=== PATIENT | male | born 1935 | race Caucasian/White ===

== ENCOUNTER 2018-10-21 12:22 | Observation (INO) | payer MEDICARE, OTHER ==
--- NOTE | 2018-10-12 09:46 | HP ---
Amended report to enter cosigning physician. HISTORY AND PHYSICAL: DATE OF ADMISSION/SURGERY: 10/21/18 DATE OF OFFICE VISIT: 10/11/18 SURGEON: Tri Ballard MD* (dictated by NELY Montana). PROCEDURE: Right total knee arthroplasty. CHIEF COMPLAINT: Right knee pain. HISTORY OF PRESENT ILLNESS: Mr. Carey is an 82-year-old gentleman with complaints of right knee pain. He has failed conservative treatment and elected to proceed with a right total knee arthroplasty. PAST MEDICAL HISTORY: 1. Mobitz type 1 heart block. 2. BPH. 3. History of Lyme disease. PAST SURGICAL HISTORY: 1. Hydrocele reduction. 2. Hernia repair x2. 3. ORIF of the left ankle. 4. Right knee ACL reconstruction. 5. Nasal surgery. 6. Right rotator cuff repair. 7. Removal of hardware of the right knee. CURRENT MEDICATIONS: 1. Vitamin D. 2. Magnesium. 3. Finasteride. ALLERGIES: No known drug allergies. FAMILY HISTORY: Diabetes, dementia, coronary artery disease, and stroke. SOCIAL HISTORY: He is an 82-year-old gentleman, lives with his . He does not smoke or use drugs. REVIEW OF SYSTEMS: A complete 14-point review of systems was reviewed with the patient. It was all negative and noncontributory. He denies history of DVT, PE , hepatitis, HIV, or anesthesia problems. PHYSICAL EXAMINATION GENERAL: He is well developed, well nourished, in no acute distress. VITAL SIGNS: He stands 66 inches tall, weighs 138 pounds. Blood pressure is 116/66, his heart rate is 57. HEENT: Normocephalic, atraumatic. NECK: Supple. No palpable lymph nodes. PULMONARY: Lungs are clear to auscultation bilaterally. CARDIO: Regular rate and rhythm. Strong S1, S2. ABDOMEN: Soft, nontender, nondistended. NEUROLOGICAL: He is alert and oriented x3. MUSCULOSKELETAL: Right lower extremity, the skin is intact. There are no open wounds or abrasions. There is a moderate effusion of the right knee joint. There is a varus deformity. Range of motion is 15 to 120 degrees of flexion.. There is some tenderness over the medial joint line. He is able to dorsiflex and plantarflex. He has 2+ dorsalis pedis pulse. Intact sensation. ASSESSMENT AND PLAN: Mr. Carey is an 82-year-old gentleman with end-stage osteoarthritis of the right knee. He has failed conservative treatment and elected to proceed with a right total knee arthroplasty. The surgery is scheduled for 10/21/[address] Ballard discussed the risks and benefits of the surgery at today's visit and all of his questions were answered. He will follow up with Dr. Ballard in 2 weeks after the surgery. NELY MONTANA [id number]/CPS #: [id number] DARLINE
[~2018-10-21 12:22] MED LIST: Buffered Lidocaine 1% SYRIN* 1 ML/SYRINGE INTRADERM ONE; Dexamethasone IV* 4 MG/ML 1 ML (4 MG) IV SLOW PU ONE; Famotidine IV* 10 MG/ML 2 ML (20 mg) IV ONE; Gabapentin CAP(*) 300 MG PO ONE; Lactated Ringers 1000 ML Bag* 1,000 ML IV SCH; Tranexamic Acid 1,000 MG in NS 0.9% 50 ML* (outpatient use) IV SCH; celeCOXIB CAP* 200 MG PO ONE
--- OUTSIDE RECORDS SUMMARY | 2018-10-21 12:25 | XMS REPORT | Continuity of Care Document ---
:1935 External Reference #:[id number] Author Name Samina Moe Care Team Providers Name Role Phone Maria Elena Mcelroy MD Primary Care Physician Unavailable Payers Date Identification Numbers Payment Provider Subscriber Effective: 2001 Policy Number: [id number] Medicare Scar Ayoub PayID: [id number] [address] [place] [address] Policy Number: [id number] [employer] Scar Ayoub Group Number: [id number] [address] PayID: [id number] [place] [address] Problems Active Problems Provider Date Localized, primary osteoarthritis Tri Ballard M.D. Onset: 07/28/2016 Convalescence after surgery Tom Powers M.D. Onset: 03/21/2016 Spinal stenosis of lumbar region Tom Powers M.D. Onset: 02/18/2016 Displacement of lumbar intervertebral disc Tom Powers M.D. Onset: 2015 without myelopathy Family History Date Family Member(s) Observation Comments General Diabetes : (age 90 Father due to boxer in college Years) Alzheimer's Disease : (age 99 Mother due to Natural congestive heart Years) Causes failure Number of Children 1 son alive and well Number of Siblings 1 brother, 2 sisters, alive and well. 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 04/14/2016 hours as needed for pain. Percocet 1-2 tabs by mouth 60tabs Luis Ward M.D. 08/10/2014 - 5-325mg q4-6 hours as 04/14/2016 Tablets needed pain Avodart 1 po qd 90caps Zactagloria S. 01/25/2009 - 0.5mg Capsules Daryl Quiroga 10/10/2018 Centrum Silver 1 po qd Unknown - 09/24/2011 Che[place]abs Vitamin B Complex 1 po qd Unknown - 06/19/2016 Capsules Tamsulosin HCL Unknown - 06/19/2016 Medications Administered in Office Medication SIG Qnty Indications Ordering Provider Date Liz Ballard M.D. 08/11/2016 Nirmal KabaFor Intra-Articular Inj Per Dose Injection Liz Ballard M.D. 08/04/2016 SesarOrthokwadwoFor Intra-Articular Inj Per Dose Injection Hyaluron Or Tri Ballard M.D. 07/28/2016 Bryce KabavisjoseFor Intra-Articular Inj Per Dose Injection Depomedrol 80MG Tri Ballard M.D. 08/04/2013 Injection Vital Signs Date Vital Result Comment 10/11/2018 10:17am Height 66.5 inches 5'6.50" Weight 138.00 lb BP Systolic 116 mmHg BP Diastolic 66 mmHg Respiratory Rate 15 /min Pain Level 2 BMI (Body Mass Index) 21.9 kg/m2 08/13/2018 9:46am Height 66.5 inches 5'6.50" Weight 138.00 lb Heart Rate 57 /min BP Systolic 130 mmHg BP Diastolic 74 mmHg Respiratory Rate 16 /min Body Temperature 97.5 F Pain Level 4 BMI (Body Mass Index) 21.9 kg/m2 08/11/2016 8:08am Height 66.5 inches 5'6.50" Weight 138.00 lb Heart Rate 56 /min BP Systolic Sitting 117 mmHg BP Diastolic Sitting 68 mmHg Respiratory Rate 14 /min Pain Level 0 BMI (Body Mass Index) 21.9 kg/m2 08/04/2016 8:07am Height 66.5 inches 5'6.50" Weight 137.00 lb Heart Rate 55 /min BP Systolic 120 mmHg BP Diastolic 72 mmHg Pain Level 1 BMI (Body Mass Index) 21.8 kg/m2 07/28/2016 8:07am Height 66.5 inches 5'6.50" Weight 136.00 lb Heart Rate 62 /min BP Systolic 131 mmHg BP Diastolic 73 mmHg Body Temperature 97.6 F Pain Level 1 BMI (Body Mass Index) 21.6 kg/m2 06/20/2016 8:13am Height 66.5 inches 5'6.50" Weight 145.00 lb Heart Rate 52 /min BP Systolic 116 mmHg BP Diastolic 63 mmHg Body Temperature 97.5 F Pain Level 0 BMI (Body Mass Index) 23.1 kg/m2 05/19/2016 9:22am Height 66 inches 5'6" Weight 131.00 lb Heart Rate 60 /min BP Systolic Sitting 158 mmHg BP Diastolic Sitting 80 mmHg Pain Level 60 BMI (Body Mass Index) 21.1 kg/m2 04/14/2016 10:42am Height 66 inches 5'6" Weight 131.00 lb BP Systolic Sitting 126 mmHg BP Diastolic Sitting 80 mmHg Pain Level 3 BMI (Body Mass Index) 21.1 kg/m2 03/21/2016 10:02am Height 66 inches 5'6" Weight 131.00 lb Heart Rate 54 /min BP Systolic Sitting 140 mmHg BP Diastolic Sitting 80 mmHg Pain Level 2 BMI (Body Mass Index) 21.1 kg/m2 02/18/2016 9:07am Height 66 inches 5'6" Weight 131.00 lb BP Systolic Sitting 130 mmHg BP Diastolic Sitting 80 mmHg Pain Level 1 BMI (Body Mass Index) 21.1 kg/m2 01/21/2016 8:32am Height 66 inches 5'6" Weight 131.00 lb Heart Rate 58 /min BP Systolic Sitting 110 mmHg BP Diastolic Sitting 72 mmHg Pain Level 1 BMI (Body Mass Index) 21.1 kg/m2 09/28/2014 8:05am Height 66 inches 5'6" Weight 140.00 lb Heart Rate 49 /min BP Systolic 119 mmHg BP Diastolic 71 mmHg Pain Level 1 BMI (Body Mass Index) 22.6 kg/m2 09/04/2014 9:42am Height 66 inches 5'6" Weight 140.00 lb Heart Rate 50 /min BP Systolic 120 mmHg BP Diastolic 77 mmHg Body Temperature 96.4 F Pain Level 1 BMI (Body Mass Index) 22.6 kg/m2 08/10/2014 8:22am Height 66 inches 5'6" Weight 135.00 lb Pain Level 2 BMI (Body Mass Index) 21.8 kg/m2 09/05/2013 1:09pm Height 66 inches 5'6" Weight 135.00 lb Heart Rate 60 /min BMI (Body Mass Index) 21.8 kg/m2 08/04/2013 11:14am Height 66 inches 5'6" Weight 135.00 lb Heart Rate 56 /min BMI (Body Mass Index) 21.8 kg/m2 09/24/2011 1:40pm Height 66 inches 5'6" Weight 136.00 lb Heart Rate 66 /min BP Systolic Sitting 126 mmHg BP Diastolic Sitting 68 mmHg BMI (Body Mass Index) 21.9 kg/m2 07/31/2009 11:06am Height 66 inches 5'6" Weight 139.00 lb Heart Rate 65 /min BP Systolic 110 mmHg BP Diastolic 72 mmHg BMI (Body Mass Index) 22.4 kg/m2 01/25/2009 2:03pm Height 66 inches 5'6" Weight 137.00 lb Heart Rate 68 /min BP Systolic Sitting 98 mmHg L BP Diastolic Sitting 70 mmHg L BMI (Body Mass Index) 22.1 kg/m2 12/12/2008 10:34am Height 66 inches 5'6" Weight 135.00 lb Heart Rate 62 /min BP Systolic Sitting 124 mmHg BP Diastolic Sitting 60 mmHg BMI (Body Mass Index) 21.8 kg/m2 Results Test Date Facility Test Result H/L Range Note CBC Auto Diff 10/11/2018 [facility] White Blood 7.6 10^3/uL N 3.5-10.[address] [place] [address] [phone] Red Blood Count 4.26 10^6/uL N 4.18-5.48 Hemoglobin 14.0 g/dL N 14.0-18.0 Hematocrit 42 % N 42-52 Mean Corpuscular Volume 98 fL High 80-94 Mean Corpuscular Hemoglobin 33 pg High 27-31 Mean Corpuscular HGB Conc 34 g/dL N 31-36 Red Cell Distribution Width 14 % N 10.5-15 Platelet Count 329 10^3/uL N 150-450 Mean Platelet Volume 8.2 fL N 7.4-10.4 Abs Neutrophils 4.5 10^3/uL N 1.5-7.7 Abs Lymphocytes 2.3 10^3/uL N 1.0-4.8 Abs Monocytes 0.8 10^3/uL N 0-0.8 Abs Eosinophils 0.1 10^3/uL N 0-0.6 Abs Basophils 0.0 10^3/uL N 0-0.2 Abs Nucleated RBC 0.0 10^3/uL Granulocyte % 59.2 % Lymphocyte % 29.8 % Monocyte % 9.9 % Eosinophil % 0.7 % Basophil % 0.4 % Nucleated Red Blood Cells % 0.1 Inr/Protime 10/11/2018 [facility] Inr 0.98 N 0.82-1.09 1 [address] [place] [address] [phone] Laboratory test 10/11/2018 [facility] Partial 31.6 seconds N 26.0-38.0 finding [address] [facility] [place] [address] PTT [phone] Urinalysis 10/11/2018 [facility] Urine Color Yellow Profile [address] [place] [address] [phone] Urine Appearance Cloudy Urine Specific [place] 1.023 N 1.010-1.030 Urine pH 6.0 N 5-9 Urine Urobilinogen Negative Negative Urine Ketones Negative Negative Urine Protein Negative Negative Urine Leukocytes Negative Negative Urine Blood Negative Negative Urine Nitrite Negative Negative Urine Bilirubin Negative Negative Urine Glucose Negative Negative Comp Metabolic Panel 10/11/2018 [facility] Sodium 140 mmol/L N 135-145 [address] [place] [address] [phone] Potassium 4.5 mmol/L N 3.5-5.0 Chloride 106 mmol/L N 101-111 Co2 Carbon Dioxide 28 mmol/L N 22-32 Anion Gap 6 mmol/L N 2-11 Glucose 102 mg/dL High 70-100 Blood Urea Nitrogen 26 mg/dL High 6-24 Creatinine 0.93 mg/dL N 0.67-1.17 BUN/Creatinine Ratio 28.0 High 8-20 Calcium 9.1 mg/dL N 8.6-10.3 Total Protein 6.6 g/dL N 6.4-8.9 Albumin 4.1 g/dL N 3.2-5.2 Globulin 2.5 g/dL N 2-4 Albumin/Globulin Ratio 1.6 N 1-3 Total Bilirubin 0.70 mg/dL N 0.2-1.0 Alkaline Phosphatase 56 U/L N 34-104 Alt 17 U/L N 7-52 Ast 21 U/L N 13-39 Egfr Non- 78.0 >60 Egfr 94.4 >60 2 Type & Screen 10/11/2018 [facility] Patient Blood Type O Positive [address] [place] [address] [phone] Antibody Screen NEGATIVE CBC No Diff 03/03/2016 [facility] White Blood 7.6 10^3/uL N 3.5-10.[address] [place] [address] [phone] Red Blood Count 4.14 10^6/uL N 4.0-5.4 Hemoglobin 13.5 g/dL Low 14.0-18.0 Hematocrit 40 % Low 42-52 Mean Corpuscular Volume 97 fL High 80-94 Mean Corpuscular Hemoglobin 33 pg High 27-31 Mean Corpuscular HGB Conc 34 g/dL N 31-36 Red Cell Distribution Width 14 % N 10.5-15 Platelet Count 365 10^3/uL N 150-450 Mean Platelet Volume 8 um3 N 7.4-10.4 Basic Metabolic Panel 03/03/2016 [facility] Sodium 139 mmol/L N 133-[address] [place] [address] [phone] Potassium 4.4 mmol/L N 3.5-5.0 Chloride 106 mmol/L N 101-111 Co2 Carbon Dioxide 28 mmol/L N 22-32 Anion Gap 5 mmol/L N 2-11 Glucose 86 mg/dL N 70-100 Blood Urea Nitrogen 28 mg/dL High 6-24 Creatinine 0.84 mg/dL N 0.67-1.17 BUN/Creatinine Ratio 33.3 High 8-20 Calcium 8.9 mg/dL N 8.6-10.3 Egfr Non- 88.1 N >60 Egfr 113.4 N >60 3 Platelet Count 01/31/2016 [facility] Platelet Count 399 10^3/uL N 150-[address] [place] [address] [phone] Mean Platelet Volume 8 um3 N 7.4-10.4 Creatinine 01/31/2016 [facility] Creatinine 0.89 mg/dL N 0.67- 1.[address] [place] [address] [phone] Egfr Non- 82.5 N >60 Egfr 106.0 N >60 5 Inr/Protime 01/31/2016 [facility] Inr 1.03 N 0.89-1.[address] [place] [address] [phone] Laboratory test 01/31/2016 [facility] Partial Thrombo 30.2 seconds N 26.0-36.[address] [place] [address] [phone] Surgical 08/22/2014 [facility] S RUN DATE: [address] 08/23/ <[place] [address] NOTE> [phone] Kasia 09/02/2011 [facility] Antinuclear AB NEGATIVE Negative (Antinuclear [address] Antibodies) [place] [address] [phone] Laboratory test 09/02/2011 [facility] Erythrocyte Sed 16 MM/HR 0-[address] [place] [address] [phone] Cyclic Citrullinated Pep Igg <15.6 U () 8 Rheumatoid Factor < 15 IU/mL <15 9 CBC Auto Diff 09/02/2011 [facility] White Blood 6.9 CUMM 4.8- 10.[address] [place] [address] [phone] Red Cell Count 4.08 CUMM Low 4.6-6.2 Hemoglobin 13.6 g/dL Low 14.0-18.0 Hematocrit 40 % Low 42-52 Mean Corpuscular Volume 97 um3 High 80-94 Mean Corpuscular Hemoglob 33 pg High 27-31 Mean Corpuscular HGB Cone 34 g/dL 32-36 Redcell Distribution WDTH 14 % 10.5-15 Platelet Count 278 CUMM 150-450 Mean Platelet Volume 9.6 um3 7.4-10.4 Gran % 55.7 % 38-83 Lymph % 30.1 % 25-47 Mononuclear % 11.2 % High 1-9 Eosinophil % 2.3 % 0-6 Basophil % 0.7 % 0-2 Abs Lymphs 2.1 1.0-4.8 Abs Mononuclear 0.8 0-0.8 Absolute Neutrophil Count 3.8 1.5-7.7 Abs Eosinophils 0.2 0-0.6 Abs Basophils 0 0-0.2 Laboratory test 09/02/2011 [facility] Uric Acid 6.0 mg/dL 2.6 -7.2 finding [address] [place] [address] [phone] C Reactive Protein 0.8 mg/dL High Less Than 0.5 1 Standard intensity warfarin therapeutic range: 2.0-3.0 High intensity warfarin therapeutic range: 2.5-3.5 2 Because ethnic data is not always readily available, this report includes an eGFR for both -Americans and non- Americans. The National Kidney Disease Education Program (NKDEP) does not endorse the use of the MDRD equation for patients that are not between the ages of 18 and 70, are , have extremes of body size, muscle mass, or nutritional status, or are non- or non-. According to the National Kidney Foundation, irrespective of diagnosis, the stage of the disease is based on the level of kidney function: Stage Description GFR(mL/min/1.73 m(2)) 1 Kidney damage with normal or decreased GFR 90 2 Kidney damage with mild decrease in GFR 60-89 3 Moderate decrease in GFR 30-59 4 Severe decrease in GFR 15-29 5 Kidney failure <15 (or dialysis) 3 Because ethnic data is not always readily available, this report includes an eGFR for both -Americans and non- Americans. The National Kidney Disease Education Program (NKDEP) does not endorse the use of the MDRD equation for patients that are not between the ages of 18 and 70, are , have extremes of body size, muscle mass, or nutritional status, or are non- or non-. According to the National Kidney Foundation, irrespective of diagnosis, the stage of the disease is based on the level of kidney function: Stage Description GFR(mL/min/1.73 m(2)) 1 Kidney damage with normal or decreased GFR 90 2 Kidney damage with mild decrease in GFR 60-89 3 Moderate decrease in GFR 30-59 4 Severe decrease in GFR 15-29 5 Kidney failure <15 (or dialysis) 4 CALL RESULTS TO EXT: [id number] 5 Because ethnic data is not always readily available, this report includes an eGFR for both -Americans and non- Americans. The National Kidney Disease Education Program (NKDEP) does not endorse the use of the MDRD equation for patients that are not between the ages of 18 and 70, are , have extremes of body size, muscle mass, or nutritional status, or are non- or non-. According to the National Kidney Foundation, irrespective of diagnosis, the stage of the disease is based on the level of kidney function: Stage Description GFR(mL/min/1.73 m(2)) 1 Kidney damage with normal or decreased GFR 90 2 Kidney damage with mild decrease in GFR 60-89 3 Moderate decrease in GFR 30-59 4 Severe decrease in GFR 15-29 5 Kidney failure <15 (or dialysis) 6 CALL RESULTS TO EXT: [id number] 7 RUN DATE: 08/23/14 [facility] LAB LIVE PAGE 1 RUN TIME: [address] [place] [address] Specimen Inquiry Name: SCAR AYOUB : [address]: Tri Ballard MD Acct: [id number] Unit: [id number] AGE: 78 Location: OR Re08/22/14 SEX: M Status: REG SD SPEC: [id number] TARI: 08/22/14-[address]: Tri Ballard MD REQ: [id number] RECD: 08/22/14 STATUS: SOUT _ ORDERED: LEVEL I FINAL DIAGNOSIS Right knee, hardware removal: Foreign body (orthopedic hardware) (Gross diagnosis). PRE-OPERATIVE DIAGNOSIS Right knee painful hardware. GROSS DESCRIPTION The specimen is received fresh labeled, Hardware Right Knee, and consists of a 5.5 x 0.2 cm silver metallic partially threaded Abel-headed screw and a 1.2 x 0.2 cm silver metallic circular washer. Per established hospital medical staff protocol, no tissue is submitted. Gross only. Signed (signature on file) Kesha Beach MD 1020 END OF REPORT * ML=Testing performed at Main Lab DEPARTMENT OF PATHOLOGY, [address] [place] [address] Scar Arshad M.D. Director [facility] # [id number] -- REFERENCE VALUE -- <20.0 (Negative) Test Performed by: [facility] Dpt of Lab Med and Pathology [address] [place] [address] Sports Umpire: Ab Hunter III, M.D. 9 Test Performed by: [facility] Dpt of Lab Med and Pathology [address] [place] [address] Sports Umpire: Ab Hunter III, M.D. Procedures Date Code Description Status 08/11/201625281 Inject/Drain Joint/Bursa Major W/O US Completed 08/04/2016 Inject/Drain Joint/Bursa Major W/O US Completed 07/28/201686309 Inject/Drain Joint/Bursa Major W/O US Completed 03/11/2016 49747 Medel/Facet/Foraminotomy;Vertebral Segment; Lumbar Completed 03/11/2016 01413 Medel/Facet/Foraminotomy;Vertebral Segment; Lumbar Completed 03/11/2016 20370 Laminotomy W/Decomp NRV RT,One Interspace,Lumbar Completed 03/11/2016 86898 Laminotomy W/Decomp NRV RT,One Interspace,Lumbar Completed 03/03/2016 28827 EKG, Interpretation Only Completed 08/22/201425087 Removal Implant Deep Wire,Screw Nail,Randal Or Plate Completed 08/22/201416150 Removal Implant Deep Wire,Screw Nail,Randal Or Plate Completed 08/04/2013 76372 Inject/Drain Joint/Bursa Major W/O US Completed 08/04/2013 03209 Xray Knee 3 Views Completed 07/31/2009 74854 EKG Tracing & Interpretation Completed 07/25/2009 57085 Holter Monitor Completed 01/09/2009 88989 Mobile Cardiovascular Telemetry Over 24 HR Up To 30 Days Completed 12/22/2008 03397 ECHO Stress Test Incl Perf Contiuous ekg Monitoring W/Phys Completed Superv 12/22/2008 87256 ECHO Stress Test Incl Perf Contiuous ekg Monitoring W/Phys Completed Superv 12/19/2008 82243 ECHO Transthoracic, Real-Time 2D With Doppler And Color Completed Flow 12/14/2008 15467 Mobile Cardiovascular Telemetry Over 24 HR Up To 30 Days Completed 12/12/2008 82510 EKG Tracing & Interpretation Completed 02/05/2004 35742 ECHO/Stress Completed 02/05/2004 46723 Stress Test Completed Encounters Type Date Location Provider Dx Diagnosis Office Visit 08/13/2018 Orthopedic Tri Ballard, M25.561 Pain in right 9:30a Services Of [facility] Brito knee M25.461 Effusion, right knee M17.31 Unilateral post-traumatic osteoarthritis, right knee Office Visit 06/20/2016 8:15a Orthopedic Services Tri Ballard, M25.561 Pain in right Of C.MEric Brito knee M17.11 Unilateral primary osteoarthritis, right knee Office Visit 02/18/2016 Neurosurgery Tom M51.26 Other 9:15a Services Of Nikole Powers M.D. intervertebral disc displacement, lumbar region M48.06 Spinal stenosis, lumbar region Office Visit 01/21/2016 Neurosurgery Tom M51.26 Other 10:30a Services Of Nikole Powers M.D. intervertebral disc displacement, lumbar region Office Visit 08/10/2014 Orthopedic Tri Ballard 715.96 Osteoarthrosis 8:30a Services Of [facility] Brito Unspec Genlzd Or Localized Lower Leg 996.78 Complication Due To Internal Orthopedic Device Implant Other Office Visit 09/05/2013 Orthopedic Tri Ballard, 715.96 Osteoarthrosis 1:15p Services Of Michelle Brito Unspec Genlzd Or Localized Lower Leg Office Visit 08/04/2013 Orthopedic Tri Ballard 715.96 Osteoarthrosis 11:00a Services Of Michelle Brito Unspec Genlzd Or Localized Lower Leg Office Visit 09/24/2011 Rheumatology Seferino 715.09 Osteoarthrosis 1:40p Services Of Nikole Pineda M.D. 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 Block Other Second Degree 786.05 Shortness Of Breath 426.11 Atrioventricular Block First Degree Office 12/12/2008 Rachael Blum 794.31 Electrocardiogram Visit 10:30a Jimena Quiroga M.D. (ECG) (EKG) Abnormal 426.13 Atrioventricular Block Other Second Degree 786.05 Shortness Of Breath Plan of Treatment Future Appointment(s):11/01/2018 10:45 am - Tri Ballard M.D. at [facility].10/21/2018 4:00 pm - NAVA Barnhart at [facility].10/21/2018 4:00 pm - NAVA Gallo at [facility].10/21/2018 4:00 pm - NELY Gaona at [facility]12/13/2018 8:40 am - Goran Rivera MD at [facility] Falflvljrhy21/13/2019 4:00 pm - Tri Ballard M.D. at [facility]10/11/2018 - Tri Ballard M.D.M25.561 Pain in right kneeFollow up:Follow up: 2 weeks after sfqpvqyL97.461 Effusion, right kneeM17.31 Unilateral post- traumatic osteoarthritis, right knee
[2018-10-21] MEDS ORDERED: Gabapentin CAP(*) 300 MG ONE (13:02)
[2018-10-21] MEDS ORDERED: ceFAZolin 2 GM PREMIX in ORs 2 GM/50 ML BAG ONE (13:02)
[2018-10-21] MEDS ORDERED: Famotidine IV* 10 MG/ML 2 ML (20 mg) ONE (13:02)
[2018-10-21] MEDS ORDERED: celeCOXIB CAP* 200 MG ONE (13:02)
[2018-10-21] MEDS ORDERED: Dexamethasone IV* 4 MG/ML 1 ML (4 MG) ONE (13:02)
[2018-10-21] MEDS ORDERED: Ondansetron INJ* 2 MG/ML VIAL ONE (13:33)
[2018-10-21] MEDS ORDERED: Midazolam* 1 MG/ML 5 ML VIAL (5 MG) ONE (13:33)
[2018-10-21] MEDS ORDERED: KETAMINE HCL* 50 MG/ML 10 ML VIAL ONE (13:33)
[2018-10-21] MEDS ORDERED: Propofol* 10 MG/ML 20 ML BTL ONE (13:33)
[2018-10-21] MEDS ORDERED: fentaNYL* 50 MCG/ML 2 ML VIAL (100 MCG VIAL) ONE (13:33)
[2018-10-21] MEDS ORDERED: ROPIVACAINE 5 MG/ML 30 ML BTL (0.5%) ONE ×3 (14:06→14:27)
[2018-10-21] MEDS ORDERED: Bupivacaine 0.5% SDV PF* 30ML VIAL ONE (14:24)
[2018-10-21] MEDS ORDERED: Glycopyrrolate IV* 0.2 MG/ML 1 ML VIAL ONE (16:23)
[2018-10-21] MEDS ORDERED: Atropine 1MG/ML INJ* 1 ML VIAL ONE (16:23)
[2018-10-21] MEDS ORDERED: Acetaminophen IV 1GM/100ML * 100 ML ONE (17:11)
[2018-10-21] MEDS ORDERED: Morphine INJ* 2 MG/ML 1 ML SYRINGE (TWO MG - NEW SYRINGE VERSION) IV PRN (17:34)
[2018-10-21] MEDS ORDERED: diPHENhydraMINE IV* 50 MG/ML 1 ml VIAL (BENADRYL) IV PRN (17:34)
[2018-10-21] MEDS ORDERED: Bisacodyl SUPP* 10 MG SUPP PR PRN (17:34)
[2018-10-21] MEDS ORDERED: traMADol TAB* 50 MG PO PRN (17:34)
[2018-10-21] MEDS ORDERED: diPHENhydraMINE PO* 25 MG PO PRN (17:34)
[2018-10-21] MEDS ORDERED: oxyCODONE/Acetamin 5/325 MG* TAB PO PRN ×2 (17:34→17:42)
[2018-10-21] MEDS ORDERED: Cyclobenzaprine TAB* 10 MG PO PRN (17:34)
[2018-10-21] MEDS ORDERED: Ondansetron INJ* 2 MG/ML VIAL IV PRN (17:34)
[2018-10-21] MEDS ORDERED: Polyethylene Glycol 3350* 17 GM PACKET PO PRN (17:34)
[2018-10-21] MEDS ORDERED: Magnesium Hydroxide LIQ* 30 ML UDC PO PRN (17:34)
[2018-10-21] MEDS ORDERED: Acetaminophen TAB* 325 MG PO SCH (18:00)
--- NOTE | 2018-10-21 18:28 | OP ---
Operative Report - Blank - Operative Report Date of Operation: 10/21/18 Note: ASIF AYOUB 1935 Date of Surgery: 10/21/18 Tri Ballard MD Employment Manager: Angeles MCKAY did help throughout the procedure with preparation of the knee, wound retraction, manipulation of the knee, and wound closure. 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 Multiple culture swabs sent to microbiology. Tibial screw sent to pathology. Hardware Used: Cemented [employer] total knee hardware was used - For the femur a size 5 right legion posterior stabilized femoral component, for the tibia a size 4 lucita II tibial baseplate, for the insert a size 9mm 3-4 posterior stabilized articular polyethylene insert, and for the patella a size 32 3-peg all poly patella. Brief History/Indication: ASIF AYOUB was known in clinic and had a history of severe right knee pain and swelling secondary to post traumatic osteoarthritis. He had acl reconstruction many years ago. He had femoral hardware removed last year. He failed conservative treatment with anti- inflammatories, pain pills, intra-articular injections and physical therapy. He elected to undergo right total knee arthroplasty due to continued pain and decreased quality of life. Radiographs showed severe end stage osteoarthritis of the knee with bone on bone contact and a retained tibial screw. Informed consent was obtained from the patient. He understood the risks of surgery included but were not limited to: bleeding, infection, damage to nearby structures, intraoperative fracture, nerve palsy, failure of the hardware, early loosening, knee stiffness or loss of motion, anesthesia complications, stroke, heart attack, blood clot and . He wished to proceed. Intra-Operative Findings: Intraoperatively the patient was noted to have severe loss of cartilage in all 3 compartments of the knee. He had 20 degree flexion contracture and 15 degree varus deformity preoperatively, this was corrected intraoperatively. His tibial screw was removed without complication. Description of the Procedure: ASIF AYOUB was identified in the preanesthesia unit. His right knee was marked as the correct operative side. Informed consent was signed and placed in the chart. The patient was taken to the operating room and placed under anesthesia without complication. A martin catheter was placed. A tourniquet was placed on the right thigh. The right lower extremity was prepped and draped in the usual sterile fashion. Preoperative time-out was made to correctly identify the patient, side and site. Appropriate intraoperative antibiotics were given within one hour of incision. Tourniquet was inflated. A midline incision was made and carried sharply down to the extensor mechanism. A new 10 blade was used to make a standard medial parapatellar arthrotomy. The patella was subluxed laterally. Electrocautery was used to dissect soft tissue off the superomedial tibia to the midsagittal plane. The knee was flexed up. The anterior horn of the lateral meniscus and the ACL were sharply incised. A drill was used to enter the distal femur. The intramedullary distal femoral cutting guide was pinned on the distal femur. The oscillating saw was used to make the distal femoral cut. The external rotation guide was pinned on the distal femur and the distal femur was sized to a size 5. The size 5 multi-cutting jig was pinned on the distal femur. The oscillating saw was used to make the appropriate 4 chamfer cuts. A curetted was used to remove any bone around the visible medial proximal tibial screw. Multiple screw drivers were used to find the correct fit and the screw was carefully removed without complication. Next the PCL was completely released. The extramedullary tibial cutting guide was pinned on the proximal tibia and the oscillating saw was used to make the proximal tibial cut perpendicular to the mechanical axis of the tibia. The bone was carefully removed. The knee was brought out into full extension. The spacer block was placed and had excellent fit with the knee in full extension. The medial and lateral ligaments were well balanced. The flexion and extension gaps were well balanced. The knee was flexed up. 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 Any remaining meniscus was removed with electrocautery. Curved osteotome was used to remove any posterior osteophytes. The tibial tray and drop opal were placed and confirmed a satisfactory tibial cut. The size 5 right femoral trial was impacted onto the distal femur. This trial had excellent fit and stability. The box for the posterior stabilized implant was prepared using a box cut osteotome and a reamer. Next a tibial tray trial and 9 mm insert trial was placed. The knee was taken through a range of motion and had full extension to 130 degrees of flexion. Patellofemoral tracking was satisfactory. The patella was inverted and sized to a size 32. Three peg holes were drilled through the size 32 drill guide. The trial patella was placed and the knee was taken through a range of motion. There was satisfactory patellofemoral tracking. All trials were removed. The tibia was subluxed anteriorly and sized to a size 3. The proximal tibial was prepared with a size 3 keel punch. All bony cut surfaces were irrigated with sterile saline and dried. The femoral hole was plugged with the patient bone and the screw hole on the tibial was plugged with bone graft. Final implants were cemented into place starting with the tibia, followed by the femur, and last the patella. A 9 mm insert trial was placed and the knee was brought into full extension. Tourniquet was turned down and the knee was copiously irrigated with sterile saline. Electrocautery was used to obtain meticulous hemostasis. Once the cement had fully cured, the insert trial was removed. Any excess cement was removed from around the hardware and capsule. Final insert chosen was a 9 mm posterior stabilized Lucita II articular insert size 3-4. Stability of the insert was checked and noted to be stable. The extensor mechanism was closed using number 1 vicryls. The rest of the incision was closed in a layered fashion using 0 and 2-0 vicryls. The skin was closed using 3-0 nylon suture. Sterile xeroform, 4x4s and webril were used to cover the incision. Tuan wrap and cold pack were used to cover the dressings. The patients anesthesia was reversed without difficulty. He was taken to the PACU in stable condition. Intended weight-bearing will be as tolerated.
[2018-10-21] MEDS: Acetaminophen TAB* 325 MG PO SCH (22:00)
[2018-10-21] MEDS: Lactated Ringers 1000 ML Bag* 1,000 ML IV SCH (22:01)
[2018-10-21] MEDS: Docusate CAP* 100 MG PO SCH (22:01)
[2018-10-21] MEDS: Magnesium Hydroxide LIQ* 30 ML UDC PO SCH (22:01)
[2018-10-21] MEDS: ceFAZolin 1 GM ADVAN(*) 1 GM in NS 0.9% 50 ML* 50 ML IVPB SCH (23:00)
[2018-10-22] MEDS: oxyCODONE TAB* 5 MG TAB PO PRN ×4 (01:06→16:42)
[2018-10-22] MEDS: Acetaminophen TAB* 325 MG PO SCH ×2 (05:42→15:01)
[2018-10-22 06:10] LABS: Hematocrit 39 % (42-52); Hemoglobin 13.2 g/dL (14.0-18.0); Mean Platelet Volume 8.2 fL (7.4-10.4); Platelet Count 301 10^3/uL (150-450)
[2018-10-22 06:21] LABS: Calcium 8.4 mg/dL (8.6-10.3); EGFR Non-African American 75.2 (>60); Potassium 4.2 mmol/L (3.5-5.0)
[2018-10-22] MEDS: ceFAZolin 1 GM ADVAN(*) 1 GM in NS 0.9% 50 ML* 50 ML IVPB SCH ×2 (07:41→14:59)
[2018-10-22] MEDS: Docusate CAP* 100 MG PO SCH (07:45)
[2018-10-22] MEDS: Magnesium Hydroxide LIQ* 30 ML UDC PO SCH (07:47)
[2018-10-22] MEDS: Lactated Ringers 1000 ML Bag* 1,000 ML IV SCH (07:51)
[2018-10-22] MEDS ORDERED: Cholecalciferol TAB* 1000 UNITS PO SCH (09:00)
[2018-10-22] MEDS ORDERED: Magnesium Oxide TAB* 400 MG PO SCH (09:00)
[2018-10-22] MEDS ORDERED: Apixaban* 2.5 MG TAB PO SCH (09:00)
[2018-10-22] MEDS ORDERED: Finasteride TAB* 5 MG PO SCH (09:00)
--- NOTE | 2018-10-22 11:30 | DS ---
Orthopedic Discharge Summary - Discharge Summary Date of Admission:10/21/18 Date of Discharge: 10/22/18 Date of Surgery: 10/21/18 Attending Orthopedic Provider: Dr. Ballard Pre-operative Diagnosis: Advanced degenerative arthritis right knee Operative Procedure: Removal retained hardware right tibia, right total knee arthroplasty Disposition of Patient: home Condition of Patient: Stable History: ASIF AYOUB is a 82 year old M with years of increasingly severe right knee pain. Patient has failed conservative management and has elected to undergo a right total knee replacement. He had prior ACL reconstruction several years ago with retained tibial screw. Hospital Course: ASIF was admitted to [facility] on 10/21/18. Patient underwent a right total knee without complication followed by a brief recovery in PACU and transfer to the Short Stay Surgical Unit in stable condition. Physical therapy and occupational therapy participated in this patients care. Post-op day 1: patient was alert and in no acute distress. Dressing was clean, dry and intact. Operative extremity dorsiflexion and plantarflexion intact, sensation intact to light touch distally, DP2+ Dressing was changed, incision was clean, dry and intact. Patient was deemed to be medically and orthopedically stable for discharge. Physical therapy goals were met. Home Medications Medication Instructions Recorded Confirmed Type Magnesium Oxide 1 tab PO QAM 08/15/14 10/21/18 History Cholecalciferol (Vitamin D3) 1,000 unit PO QAM 10/11/18 10/21/18 History [Vitamin D3] Finasteride TAB* [Proscar TAB*] 5 mg PO QAM 10/11/18 10/21/18 History Apixaban* [Eliquis*] 2.5 mg PO BID #60 tab 10/22/18 Rx Docusate CAP* [Colace Cap*] 100 mg PO BID cap 10/22/18 Rx oxyCODONE TAB* [Roxycodone TAB 5 10 mg PO Q4H PRN #42 tab MDD 6 10/22/18 Rx mg*] Discharge home this evening WBAT RLE Eliquis for DVT prophylaxis 1 month post op Oxycodone 10 mg q 4 prn pain Follow up 10-[address] Ballard
[2018-10-22 15:48] VITALS: BP 114/69
== END 2018-10-22 17:55 | disposition home or self-care (01) ==
LOC: INTOOBSV 12:22 → AA 12:22 → SSU 20:45
PROVIDERS: ADMIT Orthopaedic Surgery Adult Reconstructive Orthopaedic Surgery; ATTEND Orthopaedic Surgery Adult Reconstructive Orthopaedic Surgery
DX: M17.11 Unilateral primary osteoarthritis, right knee (principal); I44.1 Atrioventricular block, second degree; N40.0 Benign prostatic hyperplasia without lower urinary tract symptoms; Z86.19 Personal history of other infectious and parasitic diseases; Z79.899 Other long term (current) drug therapy
CPT/HCPCS: 36415; 80048; 85014; 85018; 85049; 87070; 87073; 87205; 87640; 87641; A9270-GY; C1776; G0378; G8978-GP-CJ; G8979-GP-CI; J0461; J0690; J1100; J2250; J2405; J2704; J2795; J3010; J3490

== ENCOUNTER 2023-05-28 16:33 | Inpatient (IN) ==
[2023-05-28 17:20] LABS: ABS Eosinophils 0.2 10^3/uL (0.0-0.5); ABS Lymphocytes 2.5 10^3/uL (1.0-4.8); ABS Monocytes 0.8 10^3/uL (0.0-1.1); ABS Neutrophils 3.1 10^3/uL (1.5-7.6); Eosinophil % 2.5 %; Hematocrit 40.7 % (38-53); Hemoglobin 13.9 g/dL (13.2-16.3); Lymphocyte % 38.1 %; Mean Corpuscular Hgb Conc 34.1 g/dL (31-36); Mean Corpuscular Volume 96.9 fL (80-97); Mean Platelet Volume 8.3 fL (7.5-11.2); Nucleated Red Blood Cells % 0.1 %/100WBC (0.0-0.8); Platelet Count 335 10^3/uL (150-450); Red Cell Distribution Width 13.7 % (12-17); White Blood Count 6.6 10^3/uL (3.6-10.2)
[2023-05-28 17:25] LABS: INR 0.98 (0.83-1.13)
[2023-05-28 17:35] LABS: Albumin 4.1 g/dL (3.2-5.2); Albumin/Globulin Ratio 1.3 (1-3); Creatinine, Serum 1.1 mg/dL (0.67-1.17); Globulin 3.2 g/dL (2-4); Potassium 4.2 mmol/L (3.5-5.0); Total Bilirubin 0.5 mg/dL (0.2-1.0); Total Protein 7.3 g/dL (6.4-8.9); eGFR CKD-EPI 65.4 (>60)
[2023-05-28 18:29] LABS: Magnesium 2.3 mg/dL (1.9-2.7)
[2023-05-28 18:36] LABS: High Sensitivity Troponin 1 Hr 8 pg/mL (<20)
[2023-05-28 18:53] LABS: Rapid COVID-19 Molecular Undetected (Undetected)
[2023-05-28 19:09] LABS: Influenza A Molecular Negative (Negative); Influenza B Molecular Negative (Negative)
[2023-05-28 19:23] LABS: TSH Ultra Thyroid Stim Horm 2.02 mcIU/mL (0.34-5.60)
[2023-05-28 19:25] LABS: Free T4 0.95 ng/dL (0.61-1.12)
[2023-05-28 20:52] LABS: Urine Appearance Clear; Urine Bilirubin Negative (Negative); Urine Blood Negative (Negative); Urine Color Yellow; Urine Glucose Negative (Negative); Urine Ketones Negative (Negative); Urine Nitrite Negative (Negative); Urine Protein Negative (Negative); Urine Specific Gravity 1.013 (1.002-1.030); Urine Urobilinogen Negative (Negative)
[2023-05-28] MEDS ORDERED: Heparin 5000 UNITS/ML 1 mL VIAL SUBCUT SCH (22:00)
[2023-05-29 06:22] LABS: ABS Eosinophils 0.2 10^3/uL (0.0-0.5); ABS Lymphocytes 2.2 10^3/uL (1.0-4.8); ABS Monocytes 0.7 10^3/uL (0.0-1.1); ABS Neutrophils 2.3 10^3/uL (1.5-7.6); ABS Nucleated RBC 0.01 10^3/ul; Eosinophil % 4.5 %; Hematocrit 40.6 % (38-53); Hemoglobin 13.9 g/dL (13.2-16.3); Lymphocyte % 40.7 %; Mean Corpuscular Hemoglobin 32.9 pg (27-33); Mean Corpuscular Hgb Conc 34.3 g/dL (31-36); Mean Corpuscular Volume 95.8 fL (80-97); Mean Platelet Volume 8.1 fL (7.5-11.2); Nucleated Red Blood Cells % 0.2 %/100WBC (0.0-0.8); Platelet Count 265 10^3/uL (150-450); Red Blood Count 4.24 10^6/uL (4.06-5.63); Red Cell Distribution Width 13.9 % (12-17); White Blood Count 5.5 10^3/uL (3.6-10.2)
[2023-05-29 06:43] LABS: Calcium 8.3 mg/dL (8.6-10.3); Creatinine, Serum 1.13 mg/dL (0.67-1.17); Magnesium 2.3 mg/dL (1.9-2.7); Potassium 4.5 mmol/L (3.5-5.0); eGFR CKD-EPI 63.3 (>60)
[2023-05-29] MEDS ORDERED: Heparin 1,000 UNIT/ML 10 ml (10,000 UNITS) CATHLAB/DIALYSIS ONE (08:46)
[2023-05-29] MEDS ORDERED: nitroGLYCERIN DRIP 25,000 MCG/250 ML BTL ONE (08:47)
[2023-05-29] MEDS ORDERED: Lidocaine 1% MPF 5 ML VIAL ONE (08:47)
[2023-05-29] MEDS ORDERED: Iohexol 350 (CONTRAST) 100 ML PAK IV ONE (08:47)
[2023-05-29] MEDS ORDERED: niCARdipine 0.1MG/ML IVPREMIX 20 MG/200 ML BAG IV ONE (08:47)
[2023-05-29] MEDS ORDERED: Heparin 2 UNITS/ML 1000 mls 3,000 ML IV ONE (08:47)
[2023-05-29] MEDS ORDERED: Midazolam 5 mg/5 ml VIAL 1 mg/ml 5 ml VIAL (5 mg) ONE ×2 (08:52→14:10)
[2023-05-29] MEDS ORDERED: fentaNYL 100 mcg/2 ml 50 MCG/ML VIAL ONE ×2 (08:52→14:10)
[2023-05-29] MEDS ORDERED: fentaNYL 100 mcg/2 ml 50 MCG/ML VIAL IV SLOW PU ONE (08:58)
[2023-05-29] MEDS ORDERED: Naloxone 0.4 mg VIAL 0.4 mg/ml 1 ml VIAL IV PUSH PRN (08:58)
[2023-05-29] MEDS ORDERED: Midazolam 10 mg/10 ml VIAL 1 mg/ml 10 ml VIAL (10 mg) IV SLOW PU ONE (08:58)
[2023-05-29] MEDS ORDERED: Flumazenil 0.5 mg/5 ml 0.1 MG/ML 5 ml VIAL IV PRN (08:58)
[2023-05-29] MEDS ORDERED: Atropine 0.1 MG/ML 10 ml SYR (1 mg) ONE (09:17)
[2023-05-29] MEDS ORDERED: NS 0.9% 1000 ml BAG 1,000 ML IV SCH (10:15)
[2023-05-29] MEDS ORDERED: ceFAZolin 2 GM in NS PREMIX 2 GM/100 ML BAG IVPB ONE (10:30)
[2023-05-29] MEDS ORDERED: ceFAZolin 2 GM/50 ML BAG IV ONE (11:00)
[2023-05-29] MEDS ORDERED: Iohexol 300 (CONTRAST) 10 ML SDV ONE ×5 (14:09→16:04)
[2023-05-29] MEDS ORDERED: Lidocaine 1% VIAL 10 MG/ML 30 ML VIAL ONE ×2 (14:36→16:38)
[2023-05-29] MEDS ORDERED: ceFAZolin VIAL VIAL ONE (16:25)
[2023-05-29] MEDS: ceFAZolin VIAL 1 GM in NS 0.9% 50 ML 50 ML IVPB SCH (21:17)
[2023-05-30 05:47] LABS: ABS Eosinophils 0.2 10^3/uL (0.0-0.5); ABS Lymphocytes 1.6 10^3/uL (1.0-4.8); ABS Monocytes 0.9 10^3/uL (0.0-1.1); ABS Neutrophils 5.1 10^3/uL (1.5-7.6); ABS Nucleated RBC 0.01 10^3/ul; Eosinophil % 2.1 %; Hematocrit 39.2 % (38-53); Hemoglobin 13.4 g/dL (13.2-16.3); Lymphocyte % 20.7 %; Mean Corpuscular Hemoglobin 32.9 pg (27-33); Mean Corpuscular Hgb Conc 34.1 g/dL (31-36); Mean Corpuscular Volume 96.4 fL (80-97); Mean Platelet Volume 8.2 fL (7.5-11.2); Nucleated Red Blood Cells % 0.1 %/100WBC (0.0-0.8); Platelet Count 247 10^3/uL (150-450); Red Blood Count 4.06 10^6/uL (4.06-5.63); Red Cell Distribution Width 13.7 % (12-17); White Blood Count 7.8 10^3/uL (3.6-10.2)
[2023-05-30 06:04] LABS: Creatinine, Serum 1.03 mg/dL (0.67-1.17); Magnesium 2.1 mg/dL (1.9-2.7); Potassium 4.1 mmol/L (3.5-5.0); eGFR CKD-EPI 70.7 (>60)
[2023-05-30] MEDS: ceFAZolin VIAL 1 GM in NS 0.9% 50 ML 50 ML IVPB SCH ×2 (06:47→13:01)
[2023-05-30] MEDS ORDERED: Glycerin ADULT 2.4 gm SUPP PR ONE (09:56)
[2023-05-30 12:17] VITALS: BP 112/75
== END 2023-05-30 13:42 | disposition home or self-care (01) | DRG 244 ==
LOC: ED 16:33 → EDHOLD 18:10 → ICU 19:50
PROVIDERS: ADMIT Surgery Surgical Critical Care; ATTEND Surgery Surgical Critical Care